=== PATIENT | female | born 2000 | race African-American/Black ===

== ENCOUNTER 2019-02-19 15:24 | Emergency (ER) | payer OTHER ==
[~2019-02-19 15:24] MED LIST: ISOVUE-370 76%-LOCM 1 ML ONE
[2019-02-19 16:31] LABS: #Basophils 0.1 thou/uL (0.0-0.2); #Eosinphils 0.3 thou/uL (0.0-0.7); #Lymphocytes 2.4 thou/uL (1.20-3.40); #Neutrophils 8.5 thou/uL (1.40-6.50); %Eosinophils 2.2 % (0.0-10.0); %Lymphocytes 19.8 % (28.0-48.0); %Monocytes 7.7 % (0.0-4.0); %Neutrophils 69.3 % (31.0-61.0); Hemoglobin 11.9 g/dL (12.0-16.0); Mean Corpuscular HGB CONC 33.1 g/dL (32.0-36.0); Mean Corpuscular Hemoglobin 30.1 pg (25.0-35.0); Mean Corpuscular Volume 91.1 fL (78.0-98.0); Mean Platelet Volume 8.9 fL (7.4-10.4); Platelet Count 202 thou/uL (130-400); Red Blood Cell (RBC) Count 3.97 mill/uL (4.00-5.20); White Blood Cell (WBC) Count 12.3 thou/uL (4.8-10.8)
[2019-02-19 16:47] LABS: ALT (SGPT) 11 U/L (8-55); AST (SGOT) 18 U/L (5-34); Albumin 4.1 g/dL (3.5-5.0); Alkaline Phosphatase 64 U/L (40-150); Anion Gap 11 mmol/L (10-20); BUN (Urea Nitrogen) 9 mg/dL (7.0-18.7); Bilirubin, Total 0.4 mg/dL (0.2-1.2); Calc. Creatinine Clearance 0 mL/min (70-130); Calcium 9.5 mg/dL (7.8-10.44); Carbon Dioxide 24 mmol/L (22-29); Chloride 105 mmol/L (98-107); Estimated GFR-MDRD 88; Globulin 3.2 g/dL (2.4-3.5); Glucose 75 mg/dL (70-105); Lipase 9 U/L (8-78); Potassium 3.9 mmol/L (3.5-5.1); Protein, Total 7.3 g/dL (6.0-8.3); Sodium 136 mmol/L (136-145)
[2019-02-19 18:21] LABS: Bilirubin Small (Negative); Blood, Urine Negative (Negative); Clarity CLEAR (Clear); Glucose, Urine (Dipstick) Negative (Negative); Leukocyte Negative (Negative); Nitrite Negative (Negative); Protein, Urine (Dipstick) Trace mg/dL (Neg-Trace); Specific Gravity, Urine 1.039 (1.002-1.036); Urobilinogen 0.2 mg/dL (0.2-1.0); pH, Urine 5.5 (5.0-9.0)
[2019-02-19 18:25] LABS: Pregnancy Test - Urine (BHCG) Negative (Negative); Pregu Control Background? CLEAR/WHITE (CLR/WHITE); Pregu Control Bar Appear? YES (CONTROL BAR); Specific Gravity 1.039 (1.002-1.036)
--- NOTE | 2019-02-19 19:18 | CT ---
FCT abdomen with contrast CT pelvis with contrast: 02/19/2019 HISTORY: 18-year-old female with right lower quadrant abdominal pain FINDINGS: There is a thin-walled 5 x 5 x 4.5 cm cyst at the anterior aspect of the right pelvic cavity. Small a mount of free fluid in the cul-de-sac. The patient in colon and cecum located in the right upper quad rant such that the normal, air-filled appendix is located in Morison's pouch. Bilateral kidneys, abdo renetta aorta, adrenals, pancreas, liver, and spleen, are normal. Broad indentation of the dome of the right side of the urinary bladder by the large cyst. No small bowel dilation. No evidence of colonic diverticulitis. Multiple mildly enlarged mesenteric lymph nodes. No pneumoperitoneum. IMPRESSION: 1. A 5 x 5 x 4.5 cm right adnexal cyst. 2. Normal appendix high in the right upper quadrant in Morison's pouch. 3. Mesenteric lymphadenitis.
--- NOTE | 2019-02-19 21:29 | ULT ---
FPELVIC ULTRASOUND, WITH GRAYSCALE AND DOPPLER COLOR FLOW: Transvaginal pelvic ultrasound performed CLINICAL HISTORY: Right lower quadrant/pelvic pain. Adnexal cyst FINDINGS: There is a large cyst of the right ovary, without significant internal complexity or evidence of inte rnal solid nodularity, measuring slightly greater than 5 cm in diameter. There is free pelvic fluid o f indeterminate etiology. A small cyst/follicle is seen within the left ovary. No significant abnorma lity of the uterus is seen. Doppler evaluation does reveal flow to each ovary with vascular waveforms documented IMPRESSION: 1. Large cyst of the right ovary which is simple-appearing. Recommend 6-week follow-up pelvic ultra sound to document expected resolution of a benign cyst. 2. Free pelvic fluid, nonspecific. Transcribed Date/Time: 02/20/2019 8:21 AM
[2019-02-22 11:56] LABS: Chlamydia by PCR DETECTED (NotDetected); GC by PCR Not Detected (NotDetected)
== END 2019-02-19 22:21 | disposition home or self-care (01) ==
LOC: ERS 15:24
DX: N83.201 Unspecified ovarian cyst, right side (principal)
CPT/HCPCS: 36415; 74177; 76856; 80053; 81003; 81025; 83690; 85025; 87480; 87510; 87660; Q9966

== ENCOUNTER 2019-02-23 18:20 | Emergency (ER) | payer OTHER ==
[2019-02-23] MEDS ORDERED: Azithromycin 250 MG TAB ONE (18:45)
[2019-02-23] MEDS ORDERED: cefTRIAXone\\ROCEPHIN 250 MG VIAL ONE (18:45)
[2019-02-23] MEDS ORDERED: Lidocaine 1% PF 5 ML VIAL ONE (18:47)
== END 2019-02-23 19:50 | disposition home or self-care (01) ==
LOC: ER/OP 18:20
DX: Z02.89 Encounter for other administrative examinations (principal)
CPT/HCPCS: 96372; J0696; J2001

== ENCOUNTER 2019-10-28 18:09 | Emergency (ER) | payer OTHER ==
[2019-10-28 18:42] LABS: Bilirubin Negative (Negative); Blood, Urine Negative (Negative); Clarity Clear (Clear); Glucose, Urine (Dipstick) Normal (Negative); Leukocyte 75 Leu/uL (Negative); Nitrite Negative (Negative); Protein, Urine (Dipstick) Negative (Neg-Trace); RBC/HPF 0-3 HPF (0-3); Squamous Epithelial 0-3 HPF (0-3); Urobilinogen Normal mg/dL (Less than 2); WBC/HPF 0-3 HPF (0-3)
[2019-10-28 18:45] LABS: Pregnancy Test - Urine (BHCG) Negative (Negative); Pregu Control Background? CLEAR/WHITE (CLR/WHITE); Pregu Control Bar Appear? YES (CONTROL BAR); Specific Gravity 1.006 (1.002-1.036)
[2019-10-28 18:50] LABS: Bacteria/HPF None Seen HPF (None Seen)
== END 2019-10-28 19:07 | disposition home or self-care (01) ==
LOC: ERS 18:09
DX: N89.8 Other specified noninflammatory disorders of vagina (principal); F17.210 Nicotine dependence, cigarettes, uncomplicated
CPT/HCPCS: 81003; 81015; 81025; 99283